=== PATIENT | male | born 1970 | race Caucasian/White ===

== ENCOUNTER 2017-10-30 08:13 | Inpatient (IN) | payer BC, OTHER ==
[~2017-10-30] VITALS: Ht 188 cm; Wt 81.6 kg
[2017-10-30] MEDS ORDERED: IBUPROFEN 600 MG TABLET PO PRN (18:30)
[2017-10-30] MEDS ORDERED: LORAZEPAM 1 MG TABLET PO PRN ×2 (18:30)
[2017-10-30] MEDS ORDERED: METHOCARBAMOL 750 MG TABLET PO PRN (18:30)
[2017-10-30] MEDS ORDERED: MAGNESIUM HYDROXIDE 30 ML LIQUID UDC PO PRN (18:30)
[2017-10-30] MEDS ORDERED: LOPERAMIDE HCL 2 MG CAPSULE PO PRN ×2 (18:30)
[2017-10-30] MEDS ORDERED: DICYCLOMINE HCL 20 MG TABLET PO PRN (18:30)
[2017-10-30] MEDS ORDERED: ONDANSETRON ODT 4 MG TAB.RAPDIS SL PRN (18:30)
[2017-10-30] MEDS ORDERED: ONDANSETRON 4 MG/2 ML VIAL IM PRN (18:30)
[2017-10-30] MEDS ORDERED: MIRALAX 17 GM POWD.PACK PO PRN (18:30)
[2017-10-30] MEDS ORDERED: CLONIDINE HCL 0.1 MG TABLET PO PRN (18:30)
[2017-10-30] MEDS ORDERED: BUPRENORPHINE HCL 2 MG TAB.SUBL SL PRN (18:30)
[2017-10-30] MEDS ORDERED: ACETAMINOPHEN 325 MG TABLET PO PRN (18:30)
[2017-10-30] MEDS ORDERED: diphenhydrAMINE 50 MG CAPSULE PO PRN (18:30)
[2017-10-30] MEDS ORDERED: MAG HYDROX/AL HYDROX/SIMETH 30 ML LIQUID UDC PO PRN (18:30)
[2017-10-30] MEDS ORDERED: LORAZEPAM 2 MG/1 ML VIAL IM PRN (18:30)
--- NOTE | 2017-10-30 18:45 | NUR ---
INTAKE ASSESSMENT Patient is 47 year old male alert oriented x4.Patient stated " I am here for Cocaine use". Vital signs B/P 151/99, HR-95, RR-17, TEMP-98.2, SPO2-97%, PAIN -010. Patient reported having drug induced seizure and the last one was 10 years ago. Patient did not bring any medication from home with him. Patient is avoidant and unable to make eye contact. Patient was seen by Dr. Bray. Educated patient about unit protocol. Will be admitted on the third floor. Addendum: 10/30/17 at 1903 by NENA WOODS LVN pain 0/10.
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
[2017-10-30 20:00] VITALS: BP 145/97
[2017-10-30 20:23] LABS: *AMPHETAMINE, URINE NEGATIVE (NEGATIVE); *BARBITURATE, URINE NEGATIVE (NEGATIVE); *CANNABINOID, URINE POSITIVE (NEGATIVE); *COCCAINE, URINE POSITIVE (NEGATIVE); *OPIATE, URINE NEGATIVE (NEGATIVE); *PHENCYCLIDINE SCREEN,URINE NEGATIVE (NEGATIVE)
[2017-10-30 21:08] LABS: BASOPHILS % (AUTO) 0.8 % (0.0-2.0); EOSINOPHILS # (AUTO) 0.5 K/uL (0.0-0.7); EOSINOPHILS % (AUTO) 9.3 % (0.0-7.0); HEMATOCRIT 47.5 % (36.7-47.1); LYMPHOCYTES # (AUTO) 3.1 K/uL (20.0-40.0); MEAN CORPUSCULAR HEMOGLOBIN 30.9 uug (23.8-33.4); MEAN CORPUSCULAR HGB CONC 34 g/dL (32.5-36.3); MEAN CORPUSCULAR VOLUME 91.6 fL (73.0-96.2); MONOCYTES # (AUTO) 0.5 K/uL (2.0-10.0); MONOCYTES % (AUTO) 9.5 % (0.0-11.0); NEUTROPHILS # (AUTO) 1.1 K/uL (1.8-8.9); NEUTROPHILS % (AUTO) 20.4 % (38.5-71.5); PLATELET COUNT (AUTO) 232 K/uL (152-348); RED BLOOD CELL COUNT(AUTO) 5.18 MIL/uL (4.06-5.63); WHITE BLOOD COUNT (AUTO) 5.2 K/uL (3.6-10.2)
[2017-10-30 21:19] LABS: ETHANOL < 3 MG/DL (0-0)
[2017-10-30 21:27] LABS: ALANINE AMINOTRANSFERASE 54 U/L (16-63); ALKALINE PHOSPHATASE 90 U/L (50-136); AMYLASE 63 U/L (25-115); ASPARTATE AMINOTRANSFERASE 35 U/L (15-37); BILIRUBIN,TOTAL 0.6 mg/dL (0.2-1.0); CARBON DIOXIDE 28 mmol/L (21-32); CHLORIDE 103 mmol/L (98-107); CREATININE 1.3 mg/dL (0.6-1.3); GLUCOSE 114 mg/dL (74-106); MAGNESIUM 1.8 mg/dL (1.8-2.4); POTASSIUM 4.2 mmol/L (3.5-5.1); TOTAL PROTEIN, SERUM 7.6 g/dL (6.4-8.2); UREA NITROGEN, BLOOD 16 mg/dL (7-18)
--- NOTE | 2017-10-31 | NUR ---
Midnight VS's CIWA Deferred. 0000 VS's and CIWA deferred r/t pt sleeping/refused. RR 14, even and nonlabored. Will continue to monitor and promptly attend to all patient needs.
[2017-10-31 04:00] VITALS: BP 128/87
--- NOTE | 2017-10-31 04:00 | NUR ---
PRN Med Refusal Ativan 1mg PO refused by patient for CIWA 8. Pt claims he "doesn't really feel like he's detoxing". Will continue to monitor and promptly attend to all patient needs
--- NOTE | 2017-10-31 06:52 | NUR ---
End of Shift Patient is a 47 y/o male who is being admitted for medically supervised withdrawal from Cocaine and Xanax. PRN med Ativan 1mg PO refused by pt for CIWA 8. Pt slept for 8 hours, with 1000 mls intake, 1 voids and 0 BM's. Will continue to monitor and promptly attend to all pt needs
--- NOTE | 2017-10-31 07:30 | NUR ---
START OF SHIFT PT IS A 47 Y/O M ADMITTED ON 10/30/17 FOR MEDICALLY SUPERVISED COCAINE AND XANAX WITHDRAWAL. PT IS PLACED ON ATIVAN PRNS. LAST CIWA 8 @0400 AND 8 SLEPT 8 HRS. PT HAS A POOR EYE CONTACT, IS WITHDRAWN AND DEPRESSED, AND HAS A BLUNT AFFECT. PT HAS A DISHEVELED APPEARANCE, UNSHAVEN, PRESENTS AGITATED, IRRITABLE, ANXIOUS, RESTLESSNESS, CLAMMY SKIN, ANHEDONIA, DYSPHORIA. ENCOURAGED PT TO INCREASE FLUIDS TO FACILITATE IN DETOX. EDUCATED PT ON TX PLAN AND MED REGIMEN. SIDE RAILS UPX2, BED IN LOW POSITION, CALL LIGHT WITHIN REACH. SAFETY MEASURES IN PLACE. WILL MONITOR CLOSELY.
[2017-10-31 08:00] VITALS: BP 131/87
[2017-10-31] MEDS: THIAMINE HCL 100 MG TABLET PO SCH (08:36)
[2017-10-31] MEDS: MULTIVITAMINS,THERAPEUTIC TABLET PO SCH (08:36)
[2017-10-31] MEDS: FOLIC ACID 1 MG TABLET PO SCH (08:36)
[2017-10-31] MEDS ORDERED: TUBERCULIN,PURIF.PROT.DERIV. 5 TU/0.1 ML TEST ID ONE (09:00)
[2017-10-31] MEDS ORDERED: HYDROXYZINE PAMOATE 25 MG CAPSULE PO PRN (10:00)
[2017-10-31] MEDS ORDERED: PSYLLIUM SEED PACKET PO PRN (11:15)
[2017-10-31 12:00] VITALS: BP 117/84
[2017-10-31] MEDS ORDERED: MIRALAX 17 GM POWD.PACK PO ONE (12:00)
[2017-10-31] MEDS ORDERED: CLON0.1T14 PO (12:46)
[2017-10-31] MEDS ORDERED: DIPH50CA37 PO (12:46)
[2017-10-31] MEDS ORDERED: HYDR-3895 PO (12:46)
[2017-10-31] MEDS ORDERED: DOCU250C14 PO (12:46)
[2017-10-31] MEDS: DOCUSATE SODIUM 250 MG CAPSULE PO SCH (12:52)
[2017-10-31 16:00] VITALS: BP 129/73
--- NOTE | 2017-10-31 18:56 | NUR ---
END OF SHIFT PT'S LAST CIWA 8 @1600. PT HAS RECEIVED 0 PRNS DURING SHIFT. PT C/O CONSTIPATION AND PAIN IN THE ABD AREA; PT STATES IT IS DUE TO HERNIA MESH IMPLANT AND CONSTIPATION. MIRALAX AND COLACE GIVEN DURING SHIFT. PT REPORTED MOVEMENT IN HIS BOWELS AND PAIN HAS DECREASED BUT HAS NOT HAD A BM. PT HAS ATTENDED GROUPS. PT ATE 75/100/75% OF MEALS. FLUID INTAKE: 1200 ML, VOIDED X3, BM 0. SAFETY MEASURES IN PLACE. WILL GIVE ENDORSEMENT TO BRIDGE PAINTER HELPER NURSE.
--- NOTE | 2017-10-31 19:30 | NUR ---
Start of Shift Pt is a 47 y/o male admitted 10/30/17 for medically managed withdrawal/detox from Cocaine, Xanax, ETOH, and Marijuana. Pt found in room cleansing self. Affect blunted and flat, voice low, eye contact avoidant. Pt appears distrustful, worried, or hostile. Pt evening meds reviewed (none scheduled, PRNs available) Pt requests Milk of Magnesia for constipation. Will continue to monitor and promptly attend to all pt needs.
[2017-10-31 20:00] VITALS: BP 132/77
--- NOTE | 2017-10-31 20:56 | NUR ---
PRN Med Milk of Magnesia, 30ml PO given for constipation per pt request. Will continue to monitor, reassessing in 1 hour, and promptly attending to all patient needs
--- NOTE | 2017-11-01 | NUR ---
VS's CIWA Deferred Midnight VS's and CIWA deferred r/t pt sleeping/refused. RR 14, even and nonlabored. Will continue to monitor and promptly attend to all pt needs
--- NOTE | 2017-11-01 06:52 | NUR ---
End of Shift Pt is a 47 y/o male admitted 10/30/17 for medically managed withdrawal/detox from Cocaine, Xanax, ETOH, and Marijuana. PRN meds for shift were Milk of Magnesia 30ml PO for constipation at 2055. Pt continues to refuse all PRN Ativan for withdrawal. 1999 CIWA 8, with BP 132/77 and HR 69. Pt slept for 8 hours, with 1050 intake, 2 voids and 0 BMs. Will continue to monitor and promptly attend to all pt needs.
--- NOTE | 2017-11-01 07:32 | NUR ---
START OF SHIFT Pt is a 47 yr old male, AA&Ox4. Pt was admitted on 10/30/17 for medically supervised withdrawal from Cocaine, Xanax and ETOH. Pt is on PRN's for s/s of w/d. Pt received MOM PRN for constipation. No BM was reported during the night. Will continue to f/u. Last CIWA score was 8 during the night. Pt slept for 8 hrs. Pt is c/o anxiety but is able to cope with anxiety level. Skin is intact, warm and moist to touch. Safety precautions observed. Call light is within reach. Will continue to monitor.
[2017-11-01 08:00] VITALS: BP 128/82
[2017-11-01] MEDS: THIAMINE HCL 100 MG TABLET PO SCH (08:49)
[2017-11-01] MEDS: DOCUSATE SODIUM 250 MG CAPSULE PO SCH (08:49)
[2017-11-01] MEDS: MULTIVITAMINS,THERAPEUTIC TABLET PO SCH (08:50)
[2017-11-01] MEDS: FOLIC ACID 1 MG TABLET PO SCH (08:50)
[2017-11-01 12:27] VITALS: BP 130/89
[2017-11-01 13:09] LABS: HEPATITIS B SURFACE AG Negative (Negative)
[2017-11-01 16:30] VITALS: BP 128/79
--- NOTE | 2017-11-01 19:17 | NUR ---
END OF SHIFT Pt is a 47 yr old male, AA&Ox4. Pt was admitted on 10/30/17 for medically supervised withdrawal from Cocaine, Xanax and ETOH. Pt is on PRN's for s/s of w/d. Pt has been cooperative with medication regimen. Pt has been noted with flat affect and kept himself isolated. Pt remained in his room throughout the day and refused to attend group therapy. Skin is intact, warm and moist to touch. No PRNs were given during the day. Pt denies any BM, Encouraged increase fluid intake. Last CIWA score was 6 at 1600. Safety precautions observed. Call light is within reach.
--- NOTE | 2017-11-01 19:18 | NUR ---
Start of shift note Received report from day shift nurse. Pt is a 47 yo male, A+Ox4, presenting to [facility] for ETOH/Benzo/Cocaine withdrawal. Pt noted with agitation, anxiety, and restlessness. Pt is on PRN medications, tolerated well, and is due for discharge tomorrow. Pt has HX of Seizure which i will monitor during shift. Respirations even and unlabored. Will continue to monitor.
[2017-11-01 20:11] VITALS: BP 114/97
[2017-11-02 00:22] VITALS: BP 122/86
[2017-11-02 04:40] VITALS: BP 128/82
--- NOTE | 2017-11-02 06:47 | NUR ---
End of shift note Pt was continuously noted with anxiety, agitation, and restlessness. Pt is on PRN medications, tolerated well, and is due for discharge today. Pt remained in room for majority of shift except to go smoke on smoking patio and to get food from kitchen. Pt was not given any PRN medications during shift. Pt slept for a total of 7 HRS. Last CIWA: 5 @0400. Respirations even and unlabored. Will endorse to day shift nurse.
--- NOTE | 2017-11-02 07:40 | NUR ---
Start of Shift Notes: Received endorsed from night nurse. Patient is in his room. Alert, awake, oriented x 4. Denies S/I or H/I noted. Patient appears to be getting ready for discharge. Packing and folding his clothes. Patient is a 47 year old male admitted for cocaine withdrawal. No PRNs given during the night. Patient will be discharging today. Educated patient on the discharge process. Patient verbalized good understanding. Slept for 7 hours. Last CIWA 5. Will continue to monitor.
[2017-11-02 08:00] VITALS: BP 119/85
[2017-11-02] MEDS: THIAMINE HCL 100 MG TABLET PO SCH (08:10)
[2017-11-02] MEDS: MULTIVITAMINS,THERAPEUTIC TABLET PO SCH (08:10)
[2017-11-02] MEDS: FOLIC ACID 1 MG TABLET PO SCH (08:10)
[2017-11-02] MEDS: DOCUSATE SODIUM 250 MG CAPSULE PO SCH (08:10)
--- NOTE | 2017-11-02 09:31 | NUR ---
Discharged: Discharge education provided. Patient verbalized good understanding of all teachings. Denies S/i or H/I. CIWA 5. VS stable. All necessary discharge paperwork were signed. WATER [employer]RE TECHNICIAN cabinet checked. Cassette checked. Patient left the unit with all his belongings and valuables. Escorted off the unit at this time.
== END 2017-11-02 09:31 | disposition other institution (70) | DRG 895 ==
LOC: SRC 17:58
PROVIDERS: ADMIT Internal Medicine; ATTEND Internal Medicine
PROC: HZ2ZZZZ Detoxification Services for Substance Abuse Treatment (ICD-10-PCS; principal; 2017-10-30)
PROC: HZ51ZZZ Individual Psychotherapy for Substance Abuse Treatment, Behavioral (ICD-10-PCS; 2017-11-01)
DX: F14.23 Cocaine dependence with withdrawal (principal); F39 Unspecified mood [affective] disorder; I15.9 Secondary hypertension, unspecified; F10.10 Alcohol abuse, uncomplicated; Y90.0 Blood alcohol level of less than 20 mg/100 ml; F13.10 Sedative, hypnotic or anxiolytic abuse, uncomplicated; F12.10 Cannabis abuse, uncomplicated; F11.21 Opioid dependence, in remission; Z91.5 Personal history of self-harm; Z91.89 Other specified personal risk factors, not elsewhere classified; Z81.1 Family history of alcohol abuse and dependence; F17.210 Nicotine dependence, cigarettes, uncomplicated; F41.9 Anxiety disorder, unspecified
CPT/HCPCS: 36415; 80307; 83735; 85025; 86580; 86592; 86705; 86803; 87340; 87806; G0480